=== PATIENT | female | born 1950 | race Caucasian/White ===

== ENCOUNTER 2017-08-30 09:10 | Emergency (ER) | payer OTHER ==
[~2017-08-30] VITALS: Ht 162.6 cm; Wt 91.4 kg
[2017-08-30] MEDS ORDERED: AUGMENTIN875 MG PO (10:44)
[2017-08-30 11:57] VITALS: BP 133/64
== END 2017-08-30 11:58 | disposition home or self-care (01) ==
LOC: EME 09:10
PROC: 3E0234Z Introduction of Serum, Toxoid and Vaccine into Muscle, Percutaneous Approach (ICD-10-PCS; principal; 2017-08-30)
DX: S61.432A Puncture wound without foreign body of left hand, initial encounter (principal); L03.114 Cellulitis of left upper limb; W55.01XA Bitten by cat, initial encounter; Z23 Encounter for immunization
CPT/HCPCS: 99281; 99285; J0295; J1885; J7050

== ENCOUNTER 2017-09-02 02:27 | Inpatient (IN) | payer OTHER ==
[~2017-09-02] VITALS: Ht 162.6 cm; Wt 95.1 kg
[~2017-09-02 02:27] MED LIST: AUGMENTIN875 MG PO
[2017-09-02 03:00] LABS: HEMATOCRIT 38.4 % (36.0-46.0); HEMOGLOBIN 12.9 G/DL (11.9-15.5); MCH 30.4 PG (29.0-34.0); MCHC 33.6 G/DL (30.0-36.0); MCV 90.4 FL (83-99); PLATELET COUNT 251 K/uL (156-360); RBC DIS.WIDTH-SD 39.8 % (39-53); RED BLOOD COUNT 4.25 M/uL (3.80-5.20)
[2017-09-02 03:10] LABS: CHLORIDE 106 mEq/L (99-109); POTASSIUM 3.7 mEq/L (3.7-5.4); SODIUM 141 mEq/L (136-147)
[2017-09-02 03:13] LABS: GLUCOSE 119 mg/dL (70-99); TOTAL PROTEIN 7.6 g/dL (6.4-8.3)
[2017-09-02 03:15] LABS: TOTAL BILIRUBIN 0.6 mg/dL (0.0-1.0)
[2017-09-02 03:16] LABS: ALKALINE PHOSPHATASE 68 IU/L (3-129); CREATININE 0.7 mg/dL (0.6-1.3); GFR ESTIMATE (CALCULATED) > 59 mL/min/
[2017-09-02 03:17] LABS: UREA NITROGEN (BUN) 7 mg/dL (9-23)
[2017-09-02 03:18] LABS: AST (GOT) 31 IU/L (2-34)
[2017-09-02 03:19] LABS: ALT (GPT) 38 IU/L (3-49)
[2017-09-02 04:24] LABS: APPEARANCE CLEAR ((CLEAR)); BILIRUBIN NEGATIVE; BLOOD NEGATIVE; COLOR YELLOW ((YELLOW)); GLUCOSE (STRIP) NEGATIVE; KETONES NEGATIVE; LEUKOCYTES NEGATIVE; NITRITE NEGATIVE; PROTEIN (STRIP) NEGATIVE; SPECIFIC GRAVITY 1.013 (1.000-1.030); UCUL ADDED? NO
[2017-09-02] MEDS ORDERED: LOW DOSE ASPIRI81 M1 PO (07:42)
[2017-09-02 13:44] VITALS: BP 145/77
[2017-09-02 15:46] VITALS: BP 170/80
[2017-09-02 19:46] VITALS: BP 148/73
[2017-09-02 23:26] VITALS: BP 141/75
[2017-09-03 03:30] VITALS: BP 124/70
[2017-09-03 07:07] LABS: HEMATOCRIT 36.2 % (36.0-46.0); HEMOGLOBIN 11.6 G/DL (11.9-15.5); MCH 29.3 PG (29.0-34.0); MCV 91.4 FL (83-99); PLATELET COUNT 259 K/uL (156-360); RBC DIS.WIDTH-SD 40.9 % (39-53); RED BLOOD COUNT 3.96 M/uL (3.80-5.20); WHITE BLOOD COUNT 6.4 K/uL (4.1-10.2)
[2017-09-03 11:30] VITALS: BP 167/75
[2017-09-03] MEDS ORDERED: TRAMADOL HCL50 MG PO (13:06)
[2017-09-03] MEDS ORDERED: LEVAQUIN750 MG PO (13:06)
[2017-09-03] MEDS ORDERED: FLAGYL500 MG PO (13:07)
== END 2017-09-03 17:38 | disposition home or self-care (01) | DRG 603 ==
LOC: EME 02:27 → EDOF 04:08 → 3EAST 04:08 → ENRESERV 04:16 → 3EAST 12:44
PROVIDERS: Family Medicine
DX: L03.114 Cellulitis of left upper limb (principal); E78.5 Hyperlipidemia, unspecified; W55.01XA Bitten by cat, initial encounter; Z72.0 Tobacco use; Z79.82 Long term (current) use of aspirin
CPT/HCPCS: 73201; 80053; 81003; 85027; 99281; 99285; J0295; J0696; J1885; J2405; J2543; J3370; J7050; S0030